=== PATIENT | male | born 1965 | race Caucasian/White ===

== ENCOUNTER 2022-03-10 17:01 | Emergency (ER) | payer MEDICARE, OTHER ==
[2022-03-10 18:04] VITALS: TEMP 97.9
[2022-03-10] MEDS ORDERED: ACETAMINOPHEN TAB 500 MG TAB PO STA (20:46)
[2022-03-10] MEDS ORDERED: IBUPROFEN 800 MG TAB PO STA (20:46)
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
--- NOTE | 2022-03-10 21:25 | XR ---
EXAMINATION TYPE: XR foot complete LT DATE OF EXAM: 03/10/2022 9:14 PM INDICATION: Patient age:Male; 56 years old; Reason for study: Possible glass shard stuck in foot; COMPARISON: None TECHNIQUE: The emmanuel foot was examined in the AP, oblique, and lateral projections. FINDINGS: No evidence of any acute osseous pathology. No evidence of soft tissue swelling. Joints are preserve d. Radiopaque density measuring 2 mm is seen adjacent to the fifth metatarsal base which could repres ent radiopaque foreign body. Subcutaneous lucencies seen in the plantar aspect of the. IMPRESSION: 1. No evidence of acute fracture. 2. Possible radiopaque foreign body just lateral to the fifth metatarsal bases.
[2022-03-10 21:53] VITALS: BP 149/55; PULSE 97; RESP 20
== END 2022-03-10 22:10 | disposition home or self-care (01) ==
LOC: EDBD → EC 17:01
DX: Z18.81 Retained glass fragments (principal); F17.200 Nicotine dependence, unspecified, uncomplicated
CPT/HCPCS: 99283